=== PATIENT | male | born 2000 | race Two or more races ===

== ENCOUNTER 2025-01-07 00:51 | Emergency (ER) | payer MEDICAID, SELFPAY ==
--- NOTE | 2025-01-07 01:22 | PC.NURSE ---
PT SAID HIS PAIN IS GONE, HE WILL GO HOME.
== END 2025-01-07 01:25 | disposition left against medical advice (07) ==
PROVIDERS: Emergency Provider Emergency Medicine
DX: Z53.21 Procedure and treatment not carried out due to patient leaving prior to being seen by health care provider (principal)
CPT/HCPCS: 99283